=== PATIENT | male | born 1965 | race Hispanic/Latino ===

== ENCOUNTER 2022-08-10 08:55 | Outpatient (CLI) | payer OTHER | END 2022-08-10 08:56 | disposition home or self-care (01) | LOC: RAD-FRANK 08:55 | PROVIDERS: ATTEND Nurse Practitioner Family | DX: R07.89 Other chest pain (principal) | CPT/HCPCS: 71046 ==

== ENCOUNTER 2023-12-18 17:09 | Inpatient (IN) | payer OTHER ==
[2023-12-18] MEDS ORDERED: Aspirin Chewable 81 MG TAB ONE (19:13)
[2023-12-18] MEDS ORDERED: Ondansetron PF 4 MG/2 ML Vial ONE (19:13)
[2023-12-18] MEDS ORDERED: Famotidine/PF 20 mg/2ml Vial ONE (19:14)
[2023-12-18] MEDS ORDERED: Magnesium 2 GM/50 ML BAG (IN WATER) ONE (19:56)
[2023-12-18 20:29] LABS: #Basophils Less than 0.03 10x3/uL (0.0-0.2); %Basophils 0.1 % (0.0-1.0); %Eosinophils 0.3 % (0.0-10.0); %Lymphocytes 7.5 % (21.0-51.0); %Monocytes 3.4 % (0.0-10.0); %Neutrophils 88.4 % (42.0-75.0); Hematocrit 45.6 % (42.0-52.0); Hemoglobin 16.4 g/dL (14.0-18.0); Mean Corpuscular Hemoglobin 33.1 pg (27.0-31.0); Mean Corpuscular Volume 91.9 fL (78.0-98.0); Platelet Count 159 10x3/uL (130-400); RBC Distribution Width 13.2 % (11.5-14.5); Red Blood Cell (RBC) Count 4.96 mill/uL (4.70-6.10)
[2023-12-18 20:36] LABS: ALT (SGPT) 31 U/L (8-55); AST (SGOT) 66 U/L (5-34); Albumin 4.7 g/dL (3.5-5.0); Alkaline Phosphatase 88 U/L (40-110); Anion Gap 15 mmol/L (10-20); BUN (Urea Nitrogen) 12 mg/dL (8.4-25.7); Bilirubin, Total 1.4 mg/dL (0.2-1.2); Calc. Creatinine Clearance 0 mL/min (70-130); Calcium 9.5 mg/dL (7.8-10.44); Carbon Dioxide 22 mmol/L (22-29); Chloride 107 mmol/L (98-107); Estimated GFR 104; Globulin 3.8 g/dL (2.4-3.5); Glucose 99 mg/dL (70-105); Lipase 21 U/L (8-78); Potassium 3.8 mmol/L (3.5-5.1); Protein, Total 8.5 g/dL (6.0-8.3); Sodium 140 mmol/L (136-145)
[2023-12-18 20:44] LABS: Critical Call Chem Troponin I NUR.MVB @2043
[2023-12-18] MEDS ORDERED: Heparin 25,000 units/D5W 500 ML ONE (21:54)
[2023-12-18] MEDS ORDERED: Heparin 5,000 UNITS/ML VIAL ONE (21:54)
[2023-12-18 22:10] LABS: PTT 20.3 sec (22.9-36.1)
[2023-12-18] MEDS ORDERED: Heparin 25,000 units/D5W 500 ML IVPB SCH (22:30)
[2023-12-18 23:37] VITALS: BMI 24.7
[2023-12-19] MEDS ORDERED: Nitroglycerin 0.4 MG TAB (25 Tab Bottle) SL PRN (00:05)
[2023-12-19] MEDS ORDERED: Acetaminophen 325 MG TAB PO PRN (00:09)
[2023-12-19] MEDS ORDERED: Ondansetron PF 4 MG/2 ML Vial IVP PRN (00:09)
[2023-12-19] MEDS ORDERED: Acetaminophen 650 MG Suppository PR PRN (00:09)
[2023-12-19] MEDS ORDERED: Ondansetron ODT 4 MG TAB PO PRN (00:09)
[2023-12-19 04:49] LABS: #Basophils 0.03 10x3/uL (0.0-0.2); %Basophils 0.3 % (0.0-1.0); %Eosinophils 0.9 % (0.0-10.0); %Lymphocytes 17.8 % (21.0-51.0); %Monocytes 7.7 % (0.0-10.0); Hematocrit 40.2 % (42.0-52.0); Hemoglobin 14.2 g/dL (14.0-18.0); Mean Corpuscular HGB CONC 35.3 g/dL (32.0-36.0); Mean Corpuscular Hemoglobin 32.4 pg (27.0-31.0); Mean Corpuscular Volume 91.8 fL (78.0-98.0); Platelet Count 189 10x3/uL (130-400); RBC Distribution Width 13.2 % (11.5-14.5); Red Blood Cell (RBC) Count 4.38 mill/uL (4.70-6.10)
[2023-12-19 05:52] LABS: Anion Gap 10 mmol/L (10-20); BUN (Urea Nitrogen) 14 mg/dL (8.4-25.7); Calc. Creatinine Clearance 107 mL/min (70-130); Calcium 8.6 mg/dL (7.8-10.44); Carbon Dioxide 22 mmol/L (22-29); Chloride 109 mmol/L (98-107); Estimated GFR 105; Glucose 104 mg/dL (70-105); Potassium 3.6 mmol/L (3.5-5.1); Sodium 137 mmol/L (136-145)
[2023-12-19] MEDS: Heparin 10,000 UNITS/ 10 ML VIAL SLOW IVP SCH (06:21)
[2023-12-19] MEDS ORDERED: Verapamil 5 MG/2 ML VIAL ONE (06:26)
[2023-12-19] MEDS ORDERED: Heparin 10,000 UNITS/ 10 ML VIAL ONE ×2 (06:27→07:58)
[2023-12-19] MEDS ORDERED: Nitroglycerin 50 MG/250 ML BOT 250 ML ONE (06:27)
[2023-12-19 06:39] LABS: Critical Call Chem Troponin I NUR.BC6@0638; Troponin I 13.359 ng/mL (< 0.028)
[2023-12-19] MEDS ORDERED: Midazolam HCl 2 mg/2 ml Vial ONE (07:27)
[2023-12-19] MEDS ORDERED: fentaNYL 50 mcg/mL 1 mL Vial ONE (07:27)
[2023-12-19] MEDS ORDERED: TICAGRELOR 90 MG TABLET ONE (09:02)
[2023-12-19] MEDS ORDERED: Aspirin Chewable 81 MG TAB ONE (09:13)
[2023-12-19] MEDS: Famotidine/PF 20 mg/2ml Vial SLOW IVP SCH (10:28)
[2023-12-19] MEDS: Ezetimibe 10 MG TAB PO SCH (10:41)
[2023-12-19] MEDS: Sodium Chloride 0.9% 1,000 ML IV SCH (10:41)
[2023-12-19] MEDS: Famotidine 20 MG TAB PO SCH (10:41)
[2023-12-19] MEDS: Aspirin Chewable 81 MG TAB PO SCH (10:41)
[2023-12-19] MEDS: Atorvastatin Calcium 20 MG TAB PO SCH (20:17)
[2023-12-20 04:26] LABS: #Basophils Less than 0.03 10x3/uL (0.0-0.2); %Basophils 0.3 % (0.0-1.0); %Eosinophils 0.6 % (0.0-10.0); %Lymphocytes 23.5 % (21.0-51.0); %Neutrophils 65.3 % (42.0-75.0); Hematocrit 40.1 % (42.0-52.0); Hemoglobin 14.1 g/dL (14.0-18.0); Mean Corpuscular HGB CONC 35.2 g/dL (32.0-36.0); Mean Corpuscular Hemoglobin 32.4 pg (27.0-31.0); Mean Corpuscular Volume 92.2 fL (78.0-98.0); Mean Platelet Volume 10.5 fL (7.4-10.4); Platelet Count 164 10x3/uL (130-400); RBC Distribution Width 13.2 % (11.5-14.5); Red Blood Cell (RBC) Count 4.35 mill/uL (4.70-6.10)
[2023-12-20 04:50] LABS: ALT (SGPT) 28 U/L (8-55); AST (SGOT) 55 U/L (5-34); Albumin 3.5 g/dL (3.5-5.0); Alkaline Phosphatase 69 U/L (40-110); Anion Gap 13 mmol/L (10-20); BUN (Urea Nitrogen) 12 mg/dL (8.4-25.7); Bilirubin, Total 1.8 mg/dL (0.2-1.2); Calc. Creatinine Clearance 96 mL/min (70-130); Calcium 8.6 mg/dL (7.8-10.44); Carbon Dioxide 22 mmol/L (22-29); Chloride 109 mmol/L (98-107); Estimated GFR 103; Globulin 2.9 g/dL (2.4-3.5); Glucose 95 mg/dL (70-105); Potassium 4.3 mmol/L (3.5-5.1); Protein, Total 6.4 g/dL (6.0-8.3); Sodium 140 mmol/L (136-145)
[2023-12-20] MEDS ORDERED: Aspirin 81 mg Enteric Coated Tablet PO SCH (09:00)
[2023-12-20] MEDS: Clopidogrel Bisulfate 75 MG TAB PO SCH (09:07)
[2023-12-20 15:23] VITALS: BP 113/71; TEMP 98.5
== END 2023-12-20 17:40 | disposition home or self-care (01) | DRG 322 ==
LOC: ERS 17:09 → 2NO 22:25
PROVIDERS: ADMIT Student in an Organized Health Care Education/Training Program; ATTEND Hospitalist
PROC: 027035Z Dilation of Coronary Artery, One Artery with Two Drug-eluting Intraluminal Devices, Percutaneous Approach (ICD-10-PCS; principal; 2023-12-19)
PROC: 4A023N7 Measurement of Cardiac Sampling and Pressure, Left Heart, Percutaneous Approach (ICD-10-PCS; 2023-12-19)
PROC: B2111ZZ Fluoroscopy of Multiple Coronary Arteries using Low Osmolar Contrast (ICD-10-PCS; 2023-12-19)
PROC: B2151ZZ Fluoroscopy of Left Heart using Low Osmolar Contrast (ICD-10-PCS; 2023-12-19)
DX: I21.4 Non-ST elevation (NSTEMI) myocardial infarction (principal); E78.5 Hyperlipidemia, unspecified; K72.90 Hepatic failure, unspecified without coma; Z79.82 Long term (current) use of aspirin; Z79.02 Long term (current) use of antithrombotics/antiplatelets; Z79.890 Hormone replacement therapy
CPT/HCPCS: 36415; 71045; 76705; 80048; 80053; 83690; 84484; 85025; 85347; 85610; 85730; 92928; 92978; 93005; 93010; 93306; 93458; 93798; 94760; 96365; 96375; 96376; 99152; 99153; C1753; C1769; C1874; C1887; C1894; C9600; J1644; J2250; J2405; J3010; J3475; J7050; S0028